=== PATIENT | female | born 1990 | race Caucasian/White ===

== ENCOUNTER 2020-11-21 21:54 | Emergency (ER) | payer OTHER ==
--- NOTE | 2020-11-21 22:19 | EDM.PDOC ---
ED HPI GENERAL MEDICAL PROBLEM - General Stated Complaint: INJURED RIGHT ARM CANT MOVE IT Time Seen by Provider: 11/21/20 22:00 Source of Information: Reports: Patient History Limitations: Reports: No Limitations - History of Present Illness INITIAL COMMENTS - FREE TEXT/NARRATIVE: This 30 yo female patient reports to the ED due to pain in her right elbow. The patient reports she was walking her dog just prior to coming to the ED when the dog took of causing her to fall. The patient reports she reached out her right arm to attempt to break her fall. The patient reports hearing a crack/pop during the incident. The patient denies any loss of consciousness. The patient denies any chances of . Onset: Today Duration: Minutes: Location: Reports: Upper Extremity, Right Quality: Reports: Ache, Sharp Severity: Moderate Improves with: Reports: Rest Worsens with: Reports: Movement Context: Reports: Activity Associated Symptoms: Reports: No Other Symptoms - Related Data Allergies Allergy/AdvReac Type Severity Reaction Status Date / Time No Known Allergies Allergy Verified 11/21/20 22:38 Review of Systems - Review of Systems Review Of Systems: Comprehensive ROS is negative, except as noted in HPI. ED EXAM, GENERAL - Physical Exam Exam: See Below Exam Limited By: No Limitations General Appearance: Alert, WD/WN, Moderate Distress Eye Exam: Bilateral Eye: EOMI, Normal Inspection, PERRL Ears: Normal External Exam, Normal Canal, Hearing Grossly Normal, Normal TMs Nose: Normal Inspection, Normal Mucosa, No Blood Throat/Mouth: Normal Inspection, Normal Lips, Normal Teeth, Normal Gums, Normal Oropharynx, Normal Voice, No Airway Compromise Head: Atraumatic, Normocephalic Neck: Normal Inspection, Supple, Non-Tender, Full Range of Motion Respiratory/Chest: No Respiratory Distress, Lungs Clear, Normal Breath Sounds, No Accessory Muscle Use, Chest Non-Tender Cardiovascular: Normal Peripheral Pulses, Regular Rate, Rhythm, No Edema, No Gallop, No JVD, No Murmur, No Rub GI/Abdominal: Normal Bowel Sounds, Soft, Non-Tender, No Organomegaly, No Distention, No Abnormal Bruit, No Mass (Female) Exam: Deferred Rectal (Female) Exam: Deferred Back Exam: Normal Inspection, Full Range of Motion, NT Extremities: Arm Pain (Right elbow pain, CMS intact distal to injury.) Neurological: Alert, Oriented, CN II-XII Intact, Normal Cognition, Normal Gait, Normal Reflexes, No Motor/Sensory Deficits Psychiatric: Normal Affect, Normal Mood Skin Exam: Warm, Dry, Intact, Normal Color, No Rash Lymphatic: No Adenopathy Course - Vital Signs Last Recorded V/S: Last Vital Signs Temp 97.2 F 11/21/20 22:13 Pulse 72 11/21/20 22:13 Resp 18 11/21/20 22:21 BP 129/80 11/21/20 22:13 Pulse Ox 100 11/21/20 22:13 - Orders/Labs/Meds Orders: Active Orders 24 hr Category Date Time Status Elbow Min 3V Rt [CR] Urgent Exams 11/21/20 22:10 Taken - Radiology Interpretation Free Text/Narrative:: [facility] Final Radiology Report Call: [phone] assistance Online chat: [email or web address] Name: JAVIER BAH Age: 30Years F Date: 11/21/2020 SSN: -- : [id number] Study: CR ELBOW MIN 3V RT Requesting Physician: Celestino Varghese Images: 3 Addl Studies: Provided Clinical History: Right elbow pain due to ground level fall Contrast: Contrast Medium: Contrast Amount: Contrast Method: CONFIDENTIALITY STATEMENT This report is intended only for use by the referring physician, and only in accordance with law. If you received this in error, call [phone]. Page 1 of 1 PROCEDURE INFORMATION: Exam: XR Right Elbow Exam date and time: 11/21/2020 10:31 PM Age: 30 years old Clinical indication: Other: Fall/pain; Additional info: Right elbow pain due to ground level fall TECHNIQUE: Imaging protocol: XR Right elbow. Views: 3 or more views. COMPARISON: No relevant prior studies available. FINDINGS: Bones/joints: Subtle irregularity of the radial aspect of the radial head on one view. Soft tissues: Normal. Other findings: No malalignment. Small effusions suspected IMPRESSION: Potential nondisplaced radial head fracture. CT is offered for better characterization. Thank you for allowing us to participate in the care of your patient. Dictated and Authenticated by: Rufino Sheppard MD 11/21/2020 11:18 PM Central Time ([place] & [place]) Departure - Departure Time of Disposition: 23:27 Disposition: Home, Self-Care 01 Condition: Fair Clinical Impression: Injury of right elbow Qualifiers: Encounter type: initial encounter Qualified Code(s): S59.901A - Unspecified injury of right elbow, initial encounter - Discharge Information *PRESCRIPTION DRUG MONITORING PROGRAM REVIEWED*: Not Applicable *COPY OF PRESCRIPTION DRUG MONITORING REPORT IN PATIENT PAIGE: Not Applicable Forms: ED Department Discharge Care Plan Goals: The patient and mother were advised of the examination and x-ray results during the visit. The patient was offered a follow-up CT of her elbow at this time, but due to the movement of the elbow required the patient would prefer to rest, ice and elevate her elbow over the weekend. If the patient continues to have pain early next week, the patient was encouraged to either return to the emergency department or visit her primary care facility. If the patient has any additional symptoms or concerns, the patient should either return to the emergency department or visit her primary care facility. Sepsis Event Note (ED) - Focused Exam Vital Signs: Vital Signs Temp Pulse Resp BP Pulse Ox 11/21/20 22:21 18 11/21/20 22:13 97.2 F 72 18 129/80 100 - My Orders Last 24 Hours: My Active Orders 11/21/20 22:10 Elbow Min 3V Rt [CR] Urgent - Assessment/Plan Last 24 Hours: My Active Orders 11/21/20 22:10 Elbow Min 3V Rt [CR] Urgent
--- NOTE | 2020-11-21 23:18 | CR ---
PROCEDURE INFORMATION: Exam: XR Right Elbow Exam date and time: 11/21/2020 10:31 PM Age: 30 years old Clinical indication: Other: Fall/pain; Additional info: Right elbow pain due to ground level fall TECHNIQUE: Imaging protocol: XR Right elbow. Views: 3 or more views. COMPARISON: No relevant prior studies available. FINDINGS: Bones/joints: Subtle irregularity of the radial aspect of the radial head on one view. Soft tissues: Normal. Other findings: No malalignment. Small effusions suspected IMPRESSION: Potential nondisplaced radial head fracture. CT is offered for better characterization.
== END 2020-11-21 23:44 | disposition home or self-care (01) ==
LOC: DL.ED 21:54
DX: S59.901A Unspecified injury of right elbow, initial encounter (principal); W19.XXXA Unspecified fall, initial encounter; Y93.K1 Activity, walking an animal
CPT/HCPCS: 73080-RT; 99282; 99283-25

== ENCOUNTER 2022-03-27 21:44 | Emergency (ER) | payer OTHER | END 2022-03-27 22:08 | disposition home or self-care (01) | LOC: DL.ED 21:44 | DX: F10.920 Alcohol use, unspecified with intoxication, uncomplicated (principal); I10 Essential (primary) hypertension | CPT/HCPCS: 99284 ==